=== PATIENT | female | born 2005 | race Caucasian/White ===

== ENCOUNTER 2024-02-06 11:43 | Emergency (ER) | payer BC, MEDICAID, OTHER ==
[2024-02-06] MEDS: methylPREDNISolone Sodium Succinate 125 MG/2 ML SDV IM ONE (12:57)
== END 2024-02-06 13:00 | disposition home or self-care (01) ==
LOC: DL.ED 11:43
DX: L50.9 Urticaria, unspecified (principal)
CPT/HCPCS: 96372; 99282; 99283; J2930

== ENCOUNTER 2024-07-11 12:24 | Emergency (ER) | payer BC ==
[2024-07-11] MEDS ORDERED: Sodium Chloride 0.9% 10 ML Syringe FLUSH PRN (12:34)
[2024-07-11 12:42] LABS: EOSINOPHILS PERCENT AUTO 0.4 % (1.0-3.0); HEMATOCRIT 39.5 % (37.0-47.0); HEMOGLOBIN 13.2 g/dL (12.0-16.0); LYMPHOCYTES PERCENT AUTO 10.4 % (20.5-50.1); MEAN CORPUSCULAR HEMOGLOBIN 29.2 pg (27.0-34.0); MEAN CORPUSCULAR HGB CONC 33.4 g/dL (33.0-35.0); MEAN CORPUSCULAR VOLUME 87.4 fL (80-100); NEUTROPHILS PERCENT AUTO 74.2 % (42.2-75.2); PLATELET COUNT,PLT 235 10^3/uL (150-450); RED BLOOD CELL COUNT 4.52 10^6/uL (4.2-5.4); WHITE BLOOD CELL COUNT,WBC 7.8 10^3/uL (5.0-10.0)
[2024-07-11] MEDS: diphenhydrAMINE 50 MG/ML SDV IVPUSH ONE (12:43)
[2024-07-11] MEDS: Sodium Chloride 0.9% 1,000 ML IV ONE (12:43)
[2024-07-11] MEDS: methylPREDNISolone Sodium Succinate 125 MG/2 ML SDV IVPUSH ONE (12:44)
[2024-07-11] MEDS: Famotidine 20 MG/2 ML SDV IVPUSH ONE (12:44)
[2024-07-11 12:59] LABS: A/G RATIO 1.1; ALANINE AMINOTRANSFERASE,ALT 14 U/L (14-59); ALBUMIN 4.2 g/dL (3.4-5.0); ALKALINE PHOSPHATASE 88 U/L (46-116); ASPARTATE AMNIOTRANSFERASE,AST 13 U/L (15-37); BILIRUBIN TOTAL 0.3 mg/dL (0.2-1.0); BLOOD UREA NITROGEN,BUN 13 mg/dL (7-18); BUN/CREATININE RATIO 16.9 (No establ ref range); CALCIUM 9.7 mg/dL (8.5-10.1); CARBON DIOXIDE,CO2 23 mmol/L (21-32); CHLORIDE,CL 101 mmol/L (98-107); CREATININE 0.77 mg/dL (0.55-1.02); EST CRCL DRUG DOSING (CG) 100.64 mL/min; GLUCOSE RANDOM 107 mg/dL (70-99); MAGNESIUM 1.7 mg/dL (1.8-2.4); PROTEIN TOTAL,TP 8.1 g/dL (6.4-8.2); SODIUM,NA 137 mmol/L (136-145)
[2024-07-11 13:04] LABS: ESTIMATED GFR 113 mL/min (>=60)
[2024-07-11 13:12] LABS: HCG QUALITATIVE,SERUM NEGATIVE (NEGATIVE)
[2024-07-11 13:37] LABS: APPEARANCE,URINE CLEAR (CLEAR); BILIRUBIN,URINE NEGATIVE (NEGATIVE); COLOR,URINE YELLOW (YELLOW); GLUCOSE,URINE NEGATIVE (NEGATIVE); KETONES,URINE NEGATIVE (NEGATIVE); LEUKOCYTE ESTERASE,URINE TRACE (NEGATIVE); NITRITE,URINE NEGATIVE (NEGATIVE); OCCULT BLOOD,URINE LARGE (NEGATIVE); PH,URINE 6.5 (5.0-9.0); PROTEIN,URINE NEGATIVE (NEGATIVE); UROBILINOGEN,URINE 0.2 mg/dL (0.2-1.0)
[2024-07-11 13:40] LABS: AMPHETAMINES,URINE NEGATIVE (NEGATIVE); BARBITURATES,URINE NEGATIVE (NEGATIVE); BENZODIAZEPINE,URINE NEGATIVE (NEGATIVE); MDMA (ECSTASY), URINE NEGATIVE (NEGATIVE); METHADONE,URINE NEGATIVE (NEGATIVE); METHAMPHETAMINES,URINE NEGATIVE (NEGATIVE); OPIATES,URINE NEGATIVE (NEGATIVE); PHENCYCLIDINE,URINE NEGATIVE (NEGATIVE); TCA,URINE NEGATIVE (NEGATIVE)
[2024-07-11 13:41] LABS: OXYCODONE,URINE NEGATIVE (NEGATIVE)
[2024-07-11 13:47] LABS: EPITHELIAL CELLS,URINE FEW /HPF (NOT SEEN); MUCUS,URINE FEW /LPF (NOT SEEN); WBC,URINE 0-5 /HPF (0-5/HPF)
[2024-07-11 13:48] LABS: AMORPHOUS SEDIMENT,URINE FEW /HPF (NOT SEEN); BACTERIA,URINE FEW /HPF (0-FEW/HPF)
== END 2024-07-11 16:14 | disposition home or self-care (01) ==
LOC: DL.ED 12:24
DX: L50.0 Allergic urticaria (principal); T43.215A Adverse effect of selective serotonin and norepinephrine reuptake inhibitors, initial encounter; Z86.16 Personal history of COVID-19
CPT/HCPCS: 36415; 80053; 80305; 81001; 83735; 84484; 84703; 85025; 87086; 93005; 93010; 96361; 96365; 96375; 99283; 99284; J1200; J2919; J3475; J3490; J7030

== ENCOUNTER 2024-07-14 21:46 | Emergency (ER) | payer BC ==
[2024-07-14 23:32] LABS: APPEARANCE,URINE SLIGHTLY CLOUDY (CLEAR); BILIRUBIN,URINE NEGATIVE (NEGATIVE); COLOR,URINE YELLOW (YELLOW); GLUCOSE,URINE NEGATIVE (NEGATIVE); KETONES,URINE 40 (NEGATIVE); LEUKOCYTE ESTERASE,URINE TRACE (NEGATIVE); NITRITE,URINE NEGATIVE (NEGATIVE); OCCULT BLOOD,URINE TRACE-LYSED (NEGATIVE); PROTEIN,URINE 30 (NEGATIVE); UROBILINOGEN,URINE 0.2 mg/dL (0.2-1.0)
[2024-07-14 23:42] LABS: BACTERIA,URINE FEW /HPF (0-FEW/HPF); EPITHELIAL CELLS,URINE MODERATE /HPF (NOT SEEN); MUCUS,URINE MODERATE /LPF (NOT SEEN); RBC,URINE 0-5 /HPF (0-5); WBC,URINE 20-30 /HPF (0-5/HPF)
[2024-07-14] MEDS: Ketorolac 30 MG/ML SDV IVPUSH ONE (23:52)
[2024-07-14] MEDS: Acetaminophen 500 MG Tab PO ONE (23:52)
[2024-07-14] MEDS: Acyclovir 500 MG in Sodium Chloride 0.9% 100 ML IV ONE (23:53)
== END 2024-07-15 01:04 | disposition home or self-care (01) ==
LOC: DL.ED 21:46
DX: A60.00 Herpesviral infection of urogenital system, unspecified (principal); Z86.16 Personal history of COVID-19
CPT/HCPCS: 81001; 87086; 96365; 96375; 99283; 99284; A9270; J0133; J1885; J3490

== ENCOUNTER 2024-11-10 06:48 | Emergency (ER) | payer BC | END 2024-11-10 07:21 | disposition home or self-care (01) | LOC: DL.ED 06:48 | DX: M54.2 Cervicalgia (principal); Z79.899 Other long term (current) drug therapy; Z86.16 Personal history of COVID-19 | CPT/HCPCS: 99283 ==